=== PATIENT | male | born 1990 | race Two or more races ===

== ENCOUNTER 2020-02-11 13:40 | Emergency (ER) | payer MEDICAID, OTHER ==
[~2020-02-11] VITALS: Ht 180.3 cm; Wt 99.8 kg
[2020-02-11 15:40] VITALS: BP 116/78
[2020-02-11] MEDS ORDERED: KETOROLAC TROMETH 60MG/2ML VIAL IM ONE (15:45)
== END 2020-02-11 16:18 | disposition home or self-care (01) ==
LOC: ER 13:40
DX: S83.91XA Sprain of unspecified site of right knee, initial encounter (principal); W22.8XXA Striking against or struck by other objects, initial encounter; Y93.89 Activity, other specified; Y92.89 Other specified places as the place of occurrence of the external cause; Y99.8 Other external cause status
CPT/HCPCS: 73562; 96372; 99283; J1885